=== PATIENT | male | born 1990 | race African-American/Black ===

== ENCOUNTER 2016-11-21 01:59 | Emergency (ER) | payer OTHER ==
[~2016-11-21] VITALS: Ht 180.3 cm; Wt 85.3 kg
[~2016-11-21 01:59] MED LIST: ABILIFY5 MG; KLONOPIN0.5 MG; LAMICTAL25 MG; MOTRIN800 MG PO; NOHOMEMEDS; PEN-VEE K,VEET500 MG PO; PERCOCET 5/31 TABLET PO; SEROQUEL50 MG; UNABLEOBTAIN
[2016-11-21] MEDS ORDERED: KEFLEX500 MG PO (03:05)
[2016-11-21] MEDS ORDERED: MOTRIN600 MG PO (03:05)
[2016-11-21 03:30] VITALS: BP 120/69
== END 2016-11-21 03:31 | disposition home or self-care (01) ==
LOC: EME 01:59
PROC: 0V95XZX Drainage of Scrotum, External Approach, Diagnostic (ICD-10-PCS; principal; 2016-11-21)
DX: N49.2 Inflammatory disorders of scrotum (principal)
CPT/HCPCS: 87070; 87075; 87076; 87077; 87147; 87185; 87186; 87205; 99281; 99283